=== PATIENT | female | born 1965 | race Caucasian/White ===

== ENCOUNTER → 2016-11-23 | Outpatient (CLI) | payer BC ==
[~2016-11-23] MED LIST: AFRIN3 ML NS; ALEVE220 M1; BENZONATATE PO; BENZONATATE200 MG PO; DOXYCYCLINE HY100 M3 PO; DUONEB 2.5-0.5 M3 ML NEB; FLEXERIL PO; FLEXERIL10 M1 PO; FLEXERIL10 MG PO; IMMODIUM PO; KETOPROFEN PO; MEDROL PO; MEDROL4 MG/DOSE- PO; MOTRIN PO; MOTRIN600 M1 PO; MUCUS ER600 MG PO; NAPROSYN-EC500 MG PO; NO MEDICATIONS; ORUDIS75 M1 DOB; PHENERGAN DM1 ML PO; PHENERGAN25 M1 PO; PRED PAK PO; PREDNISONE PO; ROBAXIN500 MG PO; ROBITUSSIN A-C S5 ML PO; SUDAFED PO; SYMBICORT INH; ULTRAM PO; VICODIN 5-3001 EACH PO; ZITHROMAX PO; ZITHROMAX500 MG PO
--- NOTE | ~2016-11-23 | CR63 ---
[facility] A Service [facility] RADIOLOGY TEXT RESULTS PATIENT: SAUL MEDRANO LOCATION: [facility] : 65 UNIT #: [id number] AGE: [address]: Malcolm Gentile MD SEX: F ORDER DR: [id number] [address] [address] [id number] O MR#: [id number] Acc #: [id number] NAME: SAUL MEDRANO : 1965 SEX: F STUDY DATE/TIME: 11/23/2016 12:12 UNIT: SRA ROOM: STUDY DESCRIPTION: CR Chest 2 View Attending Physician: Malcolm Gentile M.D. Referring Physician: Malcolm Gentile M.D. Ordering Physician: Holley Gentile M.D. Primary Care Physician: Holley Gentile M.D. MEDICAL IMAGING REPORT This report is preliminary unless electronic signature is present. EXAM Chest x-ray HISTORY Cough. Bronchitis. Symptoms over the past week. TECHNIQUE 2 views of the chest were obtained. FINDINGS PA and lateral examination of the chest upright shows a good expansion of the parenchyma with a normal distribution of the pulmonary vascularity. There is no indication of congestion, effusion, infiltrate, tumor, or nodular density. The pleural reflections and diaphragmatic contours are normal. The cardiac silhouette and mediastinal anatomy is within normal limits. IMPRESSION Normal chest. Dictated by... Cayden Salazar M.D. THIS IS AN ELECTRONICALLY VERIFIED REPORT Cayden Salazar M.D. at 11/23/2016 6:16 PM AJITH/jose luis TD: 11/23/2016 13:52 [facility] A Service [facility] RADIOLOGY TEXT RESULTS PATIENT: SAUL MEDRANO LOCATION: [facility] : 65 UNIT #: [id number] AGE: [address]: Malcolm Gentile MD SEX: F ORDER DR: JOB #: [id number] MEDICAL IMAGING REPORT Page 1 of 1
== END | disposition home or self-care (01) ==
LOC: SRAD 12:06
DX: J40 Bronchitis, not specified as acute or chronic (principal)
CPT/HCPCS: 71020